=== PATIENT | female | born 1985 | race American Indian/Alaskan Native ===

== ENCOUNTER 2018-12-02 08:54 | Inpatient (IN) | payer MEDICAID ==
--- NOTE | 2018-12-02 08:07 | History and Physical Report ---
History of Present Illness Date of examination: 11/28/18 Date of admission: 12/02/18 Chief complaint: here for c/s and tubal ligation History of present illness: Pt presents for pre op for repeat c/s the btl. All risk, benefits, and alternatives were d/w pt and questions were addressed and answered. Pt given ample time to ask questions. Consents signed an placed on the chart. EDC Confirmation: 12/06/2018 Gestational Age: 18 4/7 weeks Past History : 4 Term Births: 2 Premature Births: 2 Living Children: 2 Para: 3 Mult. Births: 1 Prev : 2 Prev. attempt? none Aborta: 1 Elect. Ab: 1 Spont. Ab: 0 Ectopics: 0 # 1 Delivery date: 04/06/2011 Weeks Gestation: 28 labor: no Delivery type: Anesthesia type: epidural Delivery location: [place] Comments: Twins. A-girl, living, 4#11 B boy 5#2. del early for PIH, Mag, steroids # 2 Delivery date: 2012 Weeks Gestation: 6 Delivery type: EAB Comments: SAB with medications, no D&C # 3 Delivery date: 04/28/2014 Weeks Gestation: 39 Delivery type: Anesthesia type: epidural Delivery location: [place] Infant Sex: Male weight: 8#11 Past Medical History: hx of migraines Past Surgical History: c/s x2 wisdom teeth 2008 Past Medical History Surgery (Non-trial court justice): c/s x2 wisdom teeth 2008 Abnormal PAP: negative ZEE Exposure: negative Infertility: negative Uterine Anomaly: negative Uterine Surgery (not C/S): negative Other Gynecologic Problems: negative Family Hx: mother-DM, htn pgm-alzheimers Social Hx: single, FOWilfred Ellis. Lives with sister. 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 of genital herpes: no Partner hx. of genital herpes: no Rash, Viral, or Febrile illness since last LMP? no Varicella/Chicken Pox Status: Previous Disease TB Risk: no Genetic History Congenital Heart Defect: Mom: no Dad: no Hudson Disease: Mom: no Dad: no Thalassemia Mom: no Dad: no Neural Tube Defect Mom: no Dad: no Down's Syndrome Mom: no Dad: no Brian-Sachs Mom: no Dad: no Sickle Cell Disease/Trait Mom: no Dad: no Hemophilia Mom: no Dad: no Muscular Dystrophy Mom: no Dad: no Cystic Fibrosis Mom: no Dad: no [place] Chorea Mom: no Dad: no Mental Retardation Mom: no Dad: no Fragile X Mom: no Dad: no Other Genetic/Chromosomal Disorder Mom: no Dad: no Child w/other defect Mom: no Dad: no Enviromental Exposures Enviromental Exposures Reviewed Xray Exposure: no Medication, drug, or alcohol use since LMP: no Chemical/Other Exposure: no Exposure to Cat Liter: no Hx of Parvovirus (Fifth Disease): no Occupational Exposure to Children: none Active Medications (reviewed today): None Current Allergies (reviewed today): No known allergies Past History Past Medical History: no pertinent history 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: denies: abnormal PAP smear Family/Genetic History: other (see hpi) Social history: no significant social history, - Obstetrical History Expected Date of Delivery: 12/06/18 Actual Gestation: 39 Week(s) 3 Day(s) : 4 Para: 2 Hx # Term Pregnancies: 1 Number of Pregnancies: 1 Induced : 1 Number of Living Children: 2 Review of Systems All systems: negative - Physical Exam Breasts: Positive: deferred Cardiovascular: Normal S1, Normal S2 Lungs: Positive: Clear to auscultation, Normal air movement Abdomen: Positive: normal appearance, soft Genitourinary (Female): Positive: other (deferred) - Obstetrical FHR: auscultation normal Results All other labs normal. Assessment and Plan - Patient Problems (1) 39 weeks gestation of Status: Acute Plan to address problem: -consents signed -admit and prepare for c/s with BTL (2) Encounter for sterilization Status: Acute Plan to address problem: - All risk, benefits, and alternatives were d/w pt and questions were addressed and answered. Pt given ample time to ask questions. Consents signed an placed on the chart. -prepare for c/s with BTL
[2018-12-02] MEDS ORDERED: ANCEF/STERILE WATER 2 GM/20 ML 2 GM/20 ML SYRINGE IV NR (09:00)
[2018-12-02] MEDS ORDERED: LACTATED RINGERS 1,000 ML IV SCH (09:00)
[2018-12-02] MEDS ORDERED: PITOCin/NS 20 UNIT/1000ML DRIP 20 UNITS/1,000 ML BAG IV SCH ×2 (09:00→13:00)
[2018-12-02] MEDS ORDERED: PEPCID IV ONE (10:00)
[2018-12-02] MEDS ORDERED: REGLAN IV ONE (10:00)
[2018-12-02] MEDS ORDERED: BICITRA PO ONE (10:00)
[2018-12-02 10:19] LABS: Basophils % (Auto) 0.4 % (0.0-1.8); Eosinophils # (Auto) 0.1 K/mm3 (0.0-0.4); Eosinophils % (Auto) 1.2 % (0.0-4.3); Hemoglobin 12.2 gm/dl (10.1-14.3); Lymphocytes # (Auto) 1.8 K/mm3 (1.2-5.4); Lymphocytes % (Auto) 18.7 % (13.4-35.0); Mean Corpuscular HGB Conc 34 % (30-34); Mean Corpuscular Volume 90 fl (79-97); Monocytes # (Auto) 0.7 K/mm3 (0.0-0.8); Monocytes % (Auto) 7.4 % (0.0-7.3); Platelet Count 191 K/mm3 (140-440); Red Blood Count 4.02 M/mm3 (3.65-5.03); Red Cell Distribution Width 14.1 % (13.2-15.2)
[2018-12-02] MEDS ORDERED: MARCAINE 0.5% INFILTRATI ONE (10:23)
[2018-12-02] MEDS ORDERED: LEVOPHED IV ONE (10:24)
--- NOTE | 2018-12-02 10:47 | Anesthesia Consultation ---
Anesthesia Consult and Med Hx Date of service: 12/02/18 - Airway Anesthetic Teeth Evaluation: Good ROM Head & Neck: Adequate Mental/Hyoid Distance: Adequate Mallampati Class: Class II Intubation Access Assessment: Probably Good - Pulmonary Exam CTA: Yes - Cardiac Exam Cardiac Exam: RRR - Pre-Operative Health Status ASA Pre-Surgery Classification: ASA2 Proposed Anesthetic Plan: Spinal - Pulmonary Hx Asthma: No COPD: No Hx Pneumonia: No - Cardiovascular System Hx Hypertension: No - Central Nervous System Hx Seizures: No Hx Psychiatric Problems: No - Endocrine Hx Renal Disease: No Hx End Stage Renal Disease: No Hx Hypothyroidism: No Hx Hyperthyroidism: No - Hematic Hx Anemia: No Hx Sickle Cell Disease: No - Other Systems Hx Alcohol Use: No
--- NOTE | 2018-12-02 10:48 | Anesthesia Day of Surgery ---
Anesthesia Day of Surgery - Day of Surgery Patient Examined: Yes Patient H&P Reviewed: Yes Patient is NPO: Yes
[2018-12-02] MEDS ORDERED: ANCEF/STERILE WATER 2 GM/20 ML IV ONE (11:20)
[2018-12-02] MEDS ORDERED: NACL 0.9% IR ONE (11:25)
[2018-12-02] MEDS ORDERED: WATER FOR IRRIG STERILE IR ONE (11:25)
[2018-12-02] MEDS ORDERED: ZOFRAN ONE (11:30)
[2018-12-02] MEDS ORDERED: METHERGINE IM ONE ×2 (11:46→11:50)
--- NOTE | 2018-12-02 12:24 | Operative Report ---
Operative Report Operative Report: Date of procedure: 12/02/2018 Pre-operative diagnosis: 39 weeks gestation Previous section 2 Desires permanent sterilization Post-operative diagnosis: Same Procedure name(s): Repeat low transverse section via Pfannenstiel skin incision Bilateral tubal ligation via modified Judah method Surgeon: Dr. Velazquez Stenocaptioner: Ms. Debbie Hughes CST Anesthesia: Spinal EBL: 1500 mL Urine output: 400ml of clear urine out at the end of the procedure Fluids: 1300ml Findings: Grossly normal fallopian tubes and ovaries bilaterally normal uterus. Liveborn female infant weight 7lbs 12 oz at 1 and 5 minutes Indications: Patient presents for scheduled repeat section with bilateral tubal ligation. All risks benefits and alternatives were discussed with the patient. Consents were signed and placed on the chart. Procedure: Patient was taking to the operating room. Patient was then prepped and draped in sterile fashion after anesthesia was found to be adequate. Patient was noted to have keloiding of previous incision. The keloid previous scar was removed using the Bovie. A low transverse skin incision was made with the scalpel through previous incisional scar and carried down to the underlying layer of fascia with the Bovie. The fascia was then incised in the midline and this incision was extended bilaterally with the Bovie. The superior aspect of the fascia was grasped with Gabe clamps tented upward and dissected off of the anterior rectus muscles with the scalpel. In similar fashion the inferior aspect of the fascia was grasped with Gabe clamps tented upward and dissected off of the anterior rectus muscles. The rectus muscles were then bluntly divid ed in the midline. The peritoneum was identified and entered into sharply. The bladder blade was placed. The Uriah retractor was placed. A lower transverse uterine incision was made with the scalpel and extended bilaterally with the bandage scissors. Artificial rupture of membranes was performed yielding clear amniotic fluid. The 's head was then delivered atraumatically. The anterior shoulder and rest of infant delivered without difficulty. The umbilical cord was clamped x2. The cord was cut. The was then placed in sterile bassinet. The cord blood was collected. The placenta was manually extracted in its entirety. The uterus was exteriorized and cleared of all clots and debris. The uterine incision was closed using 1.0 Vicryl in a running locking fashion. A second imbricating layer of the same suture was then created. Attention was then turned to the fallopian tubes. A knuckle of the fallopian tube was suture ligated 2 and transected. Portion of tube was then handed off for pathology. This was done bilaterally The posterior cul-de-sac was copiously irrigated. The uterus was returned to the abdomen. The gutters were also irrigated. The Uriah retractor was removed from the abdomen. The anterior rectus muscles were reapproximated using 3-0 Vicryl. The anterior rectus fascia was reapproximated using 1.0 Vicryl in a running fashion. The subcuticular fat was reapproximated using 2-0 Vicryl in a running fashion. The skin was reapproximated with a 4-0 Monocryl with a subcuticular stitch.. The patient tolerated the procedure well. Sponge lap and needle counts were all correct x3. Patient was taken to the recovery room awake and in stable condition.
[2018-12-02] MEDS ORDERED: NARCAN 0.4 MG/1 ML IV PRN ×2 (12:26→13:19)
[2018-12-02] MEDS ORDERED: TUCKS PAD TP PRN (12:26)
[2018-12-02] MEDS ORDERED: LANSINOH TP PRN (12:26)
[2018-12-02] MEDS ORDERED: TORADOL IV PRN (12:26)
[2018-12-02] MEDS ORDERED: MYLICON PO PRN (12:28)
[2018-12-02] MEDS ORDERED: SODIUM CHLORIDE FLUSH SYRINGE 10 ML IV NR ×2 (13:00→14:00)
--- NOTE | 2018-12-02 13:18 | Post Anesthesia Evaluation ---
- Post Anesthesia Evaluation Patient Participated: Yes Airway Patent: Yes Stable Respiratory Function: Yes Nausea/Vomiting: No Temp > 96.8F: Yes Pain Manageable: Yes Adequeate Hydration: Yes Anesthesia Complications: No Block Receding Appropriately: Yes
[2018-12-02] MEDS ORDERED: PHENERGAN PO PRN (13:19)
[2018-12-02] MEDS ORDERED: PHENERGAN PR PRN (13:19)
[2018-12-02] MEDS ORDERED: NUBAIN IV PRN (13:19)
[2018-12-02] MEDS ORDERED: ZOFRAN IV PRN (13:19)
[2018-12-02] MEDS: ANCEF/NS 1 GM/50 ML 1 GM/50 ML BAG IV SCH (17:16)
[2018-12-02] MEDS: D5LR 1,000 ML IV SCH (21:37)
[2018-12-03] MEDS: TYLENOL PO PRN ×3 (00:05→20:51)
[2018-12-03] MEDS ORDERED: NORCO 5/325 PO PRN (01:00)
[2018-12-03 01:24] LABS: Hematocrit 34.9 % (30.3-42.9); Hemoglobin 11.3 gm/dl (10.1-14.3)
[2018-12-03] MEDS: ANCEF/NS 1 GM/50 ML 1 GM/50 ML BAG IV SCH (03:05)
[2018-12-03] MEDS: D5LR 1,000 ML IV SCH (05:29)
--- NOTE | 2018-12-03 07:00 | Progress Note ---
Assessment and Plan - Patient Problems (1) delivery delivered Onset Date: ~12/02/18 Current Visit: Yes Status: Acute Plan to address problem: pt in good spirits OOB for the first time Bautista removed Dressing D&I VSS H&H drop r/t blood loss from surgery Pt w/o symptoms. Doing well s/p c/s with tubal. P: Continue pathway Advance diet and activity as tolerated. Subjective - Subjective Date of service: 12/03/18 (pt getting OOB for the 1st time) Principal diagnosis: Day #1 s/p repeat c/s Patient reports: pain well controlled [place]: doing well Objective - Vital Signs Latest vital signs: Vital Signs Temp Pulse Resp BP BP Pulse Ox 12/02/18 20:46 98.5 F 71 15 98/48 97 12/02/18 19:43 65 90/43 12/02/18 17:21 97.9 F 70 18 85/39 12/02/18 14:20 97.4 F L 69 104/53 12/02/18 13:35 97.9 F 12/02/18 13:29 71 12 93/43 98 12/02/18 13:10 65 12 81/42 98 12/02/18 12:55 97.7 F 60 18 90/40 97 12/02/18 12:40 66 16 86/47 97 12/02/18 12:35 74 16 93/37 97 12/02/18 12:30 66 16 87/39 97 12/02/18 12:25 97.7 F 71 16 96/48 97 12/02/18 10:13 75 109/56 12/02/18 09:47 98.3 F 16 Intake and Output 12/02/18 12/02/18 12/03/18 14:59 22:59 06:59 Intake Total 5970 368 8875.333 Output Total 2400 2300 Balance -1000 530 -1076.667 Intake: IV 1400 50 983.333 ANCEF/NS 1 GM/50 ML 1 gm 50 In 50 ml @ 100 mls/hr IV Q8H LA Rx#:[id number] D5lr 1,000 ml @ 125 mls/ 983.333 hr IV DIRECT LA Rx#: [id number] Oral 480 Intake, Free Water 240 Output: Urine 2400 2300 Indwelling Catheter 800 2300 Uretheral (Bautista) 800 Other: Total, Intake Amount 480 Total, Output Amount 800 1500 Weight 169 lb Estimated Blood Loss 1,500 Patient Weight 12/03/18 06:59 Weight 169 lb - Exam Breasts: Present: normal Cardiovascular: Present: Regular rate Lungs: Present: Normal air movement Abdomen: Present: normal appearance, soft Uterus: Present: normal, fundal height at umbilicus Extremities: Present: normal Deep Tendon Reflex Grade: Normal +2 Incision: Present: normal, dry, intact, dressed (to be removed by oncoming shift) - Labs Labs: Abnormal lab results 12/02/18 Range/Units 09:25 [place] % (Auto) 7.4 H (0.0-7.3) % Seg Neutrophils % 72.3 H (40.0-70.0) %
--- NOTE | 2018-12-03 07:42 | Event Note ---
Date: 12/03/18 Based upon quoted EBL post op h/h is not reflective of this EBL of 1500. Will repeat h/h at this time to be sure it is stable.
[2018-12-03 08:41] LABS: Hematocrit 30.5 % (30.3-42.9); Hemoglobin 9.9 gm/dl (10.1-14.3)
[2018-12-03] MEDS: IBUPROFEN PO PRN (10:44)
[2018-12-03] MEDS: FEOSOL PO SCH (10:44)
[2018-12-03] MEDS ORDERED: BOOSTRIX IM ONE ×2 (12:27→20:45)
[2018-12-04] MEDS: IBUPROFEN PO PRN (03:48)
--- NOTE | 2018-12-04 08:04 | Discharge Summary ---
Providers - Providers Date of Admission: 12/02/18 08:54 Date of discharge: 12/04/18 (Pt desires d/c home) Attending physician: BASSAM MCGRAW Primary care physician: BASSAM MCGRAW Hospitalization Reason for admission: Repeat C/S Condition: Good Pertinent studies: Post-op H/H 9.9/30.5, asymptomatic anemia from acute blood loss Procedures: Repeat C/S w/ BTL Hospital course: Uncomplicated C/S and post-op course Disposition: DC- TO HOME OR SELFCARE - Discharge Diagnoses (1) delivery delivered Status: Acute Core Measure Documentation - Palliative Care Palliative Care/ Comfort Measures: Not Applicable - Core Measures Any of the following diagnoses?: none Exam - Constitutional Vitals: Temp Pulse Resp BP Pulse Ox 98.7 F 62 16 104/68 96 12/04/18 00:00 12/04/18 00:00 12/04/18 00:00 12/04/18 00:00 12/03/18 16:47 General appearance: Present: no acute distress, well-nourished - EENT Eyes: Present: PERRL ENT: hearing intact, clear oral mucosa - Neck Neck: Present: supple, normal ROM - Respiratory Respiratory effort: normal Respiratory: bilateral: CTA - Cardiovascular Heart Sounds: Present: S1 & S2. Absent: rub, click - Extremities Extremities: pulses symmetrical, No edema Peripheral Pulses: within normal limits - Abdominal General gastrointestinal: Present: soft, non-tender, non-distended, normal bowel sounds Female genitourinary: Present: normal - Integumentary Integumentary: Present: clear, warm, dry - Musculoskeletal Musculoskeletal: gait normal, strength equal bilaterally - Psychiatric Psychiatric: appropriate mood/affect, intact judgment & insight - Neurologic Neurologic: CNII-XII intact, moves all extremities - Additional findings Additional findings: Incision D/I w/ steri strips, lochia scant, BF Plan Activity: advance as tolerated Diet: regular Wound: open to air, keep clean and dry Follow up with: BASSAM MCGRAW MD [Primary Care Provider] - 7 Days (Congratulations! Please call [phone] to schedule your incision check in 1 week. Call for any questions or concerns.) Prescriptions: Docusate Sodium [Colace] 100 mg PO BID PRN #60 capsule PRN Reason: Constipation Ferrous Sulfate [Feosol 325 MG tab] 325 mg PO BID #60 tablet Ibuprofen [Motrin 800 MG tab] 800 mg PO Q6HR PRN #30 tablet PRN Reason: Pain, Moderate (4-6) oxyCODONE /ACETAMINOPHEN [Percocet 5/325] 1 tab PO Q4HR #30 tab
[2018-12-04] MEDS: FEOSOL PO SCH (09:39)
[2018-12-04 17:00] VITALS: BP 109/69
== END 2018-12-04 17:30 | disposition home or self-care (01) | DRG 765 ==
LOC: APU 08:54 → OB 14:13
PROVIDERS: ADMIT Obstetrics & Gynecology; ATTEND Obstetrics & Gynecology
PROC: 10D00Z1 Extraction of Products of Conception, Low, Open Approach (ICD-10-PCS; principal; 2018-12-02)
PROC: 0UB70ZZ Excision of Bilateral Fallopian Tubes, Open Approach (ICD-10-PCS; 2018-12-02)
PROC: 3E0234Z Introduction of Serum, Toxoid and Vaccine into Muscle, Percutaneous Approach (ICD-10-PCS; 2018-12-03)
DX: O34.211 Maternal care for low transverse scar from previous cesarean delivery (principal); D62 Acute posthemorrhagic anemia; Z3A.39 39 weeks gestation of pregnancy; Z23 Encounter for immunization; Z37.0 Single live birth; O90.81 Anemia of the puerperium; Z30.2 Encounter for sterilization
CPT/HCPCS: 36415; 85014; 85018; 85025; 86850; 86900; 86901; 88302; 90471; 90715; G0378; C9250; J0690; J0735; J1885; J2210; J2405; J2590; J2765; J7120; J7121